=== PATIENT | female | born 2000 | race Caucasian/White ===

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

== ENCOUNTER → 2021-11-16 | Outpatient (CLI) | payer OTHER, SELFPAY ==
[~2021-11-16] MED LIST: ROBA500T PO
== END ==
LOC: M WUC 10:28
PROVIDERS: ATTEND Physician Assistant Medical
DX: M79.602 Pain in left arm (principal)

== ENCOUNTER → 2024-01-09 | Outpatient (REF) | payer OTHER | LOC: M SFHCWAGY 17:36 | PROVIDERS: ATTEND Nurse Practitioner Family | DX: Z12.4 Encounter for screening for malignant neoplasm of cervix (principal); R87.618 Other abnormal cytological findings on specimens from cervix uteri; R87.615 Unsatisfactory cytologic smear of cervix ==

== ENCOUNTER → 2024-02-14 | Outpatient (CLI) | payer OTHER | LOC: M PLARAD 13:21 | PROVIDERS: ATTEND Nurse Practitioner Family | DX: M76.60 Achilles tendinitis, unspecified leg (principal); R22.41 Localized swelling, mass and lump, right lower limb ==

== ENCOUNTER → 2024-03-19 | Outpatient (REF) | payer OTHER | LOC: M SFHCWAGY 15:09 | PROVIDERS: ATTEND Nurse Practitioner Family | DX: R87.612 Low grade squamous intraepithelial lesion on cytologic smear of cervix (LGSIL) (principal) ==

== ENCOUNTER → 2024-08-25 | Outpatient (REF) | payer OTHER ==
[2024-08-25 11:25] LABS: Trichomonas vaginalis (AMP) NOT DETECTED (NEGATIVE)
[2024-08-25 11:49] LABS: GC DNA AMPLIFICATION NEGATIVE (NEGATIVE)
== END ==
LOC: M SFHCWAGY 09:45
PROVIDERS: ATTEND Nurse Practitioner Family
DX: N94.10 Unspecified dyspareunia (principal)

== ENCOUNTER → 2024-08-26 | Outpatient (CLI) | payer OTHER | LOC: M RAD 12:24 | PROVIDERS: ATTEND Nurse Practitioner Family | DX: N94.10 Unspecified dyspareunia (principal) ==

== ENCOUNTER → 2024-08-27 | Outpatient (CLI) | payer OTHER ==
[2024-08-27 12:43] LABS: FOLLICLE STIMULATING HORMONE 6.7 mIU/ML; LUTEINIZING HORMONE 9.6 mIU/ML
[2024-08-27 12:45] LABS: ESTRADIOL 55.5 PG/ML; PROGESTERONE 0.69 NG/ML; PROLACTIN 7.49 NG/ML
[2024-08-27 12:55] LABS: HEMOGLOBIN A1c 5.1 % (4.0-6.0)
[2024-08-28 09:17] LABS: DEHYDROEPIANDROSTERONE SULFATE 341 mcg/dL (14-349)
== END ==
LOC: M LAB 11:19
PROVIDERS: ATTEND Nurse Practitioner Family
DX: E28.2 Polycystic ovarian syndrome (principal)

== ENCOUNTER → 2024-10-10 | Outpatient (CLI) | payer OTHER | LOC: M RAD 10:58 | PROVIDERS: ATTEND Physician Assistant | DX: M51.16 Intervertebral disc disorders with radiculopathy, lumbar region (principal); M51.27 Other intervertebral disc displacement, lumbosacral region ==

== ENCOUNTER → 2025-03-24 | Outpatient (CLI) | payer OTHER ==
[2025-03-24 11:36] LABS: ALT/SGPT 50.0 U/L (7.0-40); AST/SGOT 38.0 U/L (<34); CALCIUM LEVEL 8.9 MG/DL (8.5-10.1); CARBON DIOXIDE LEVEL 28.0 MMOL/L (20-31); CHLORIDE LEVEL 106.0 MMOL/L (98-107); CREATININE FOR GFR 0.92 MG/DL (0.55-1.30); GLOMERULAR FILTRATION RATE 89.2 (>60); POTASSIUM SERUM 4.4 MMOL/L (3.5-5.1); SODIUM LEVEL 141.0 MMOL/L (136-145)
[2025-03-24 11:37] LABS: LUTEINIZING HORMONE 12.0 mIU/ML
[2025-03-24 11:38] LABS: ESTRADIOL 55.6 PG/ML; FREE T4 1.01 NG/DL (0.89-1.76)
== END ==
LOC: M PLALAB 08:56
PROVIDERS: ATTEND Nurse Practitioner Family
DX: Z12.4 Encounter for screening for malignant neoplasm of cervix (principal); N73.9 Female pelvic inflammatory disease, unspecified; R87.612 Low grade squamous intraepithelial lesion on cytologic smear of cervix (LGSIL); E28.2 Polycystic ovarian syndrome

== ENCOUNTER → 2025-03-31 | Outpatient (CLI) | payer OTHER ==
[~2025-03-31] MED LIST changes: +PROHANCE 279.3MG/ML 15ML VIAL As Ordered ONE; +PROHANCE 279.3MG/ML 5ML VIAL As Ordered ONE
== END ==
LOC: M RAD 07:53
PROVIDERS: ATTEND Student in an Organized Health Care Education/Training Program
DX: G96.198 Other disorders of meninges, not elsewhere classified (principal); M51.27 Other intervertebral disc displacement, lumbosacral region
CPT/HCPCS: 72158; A9576

== ENCOUNTER → 2025-06-28 | Outpatient (REF) | payer OTHER ==
[~2025-06-28] MED LIST changes: -PROHANCE 279.3MG/ML 15ML VIAL As Ordered ONE; -PROHANCE 279.3MG/ML 5ML VIAL As Ordered ONE
== END ==
LOC: M PLALAB 15:15
PROVIDERS: ATTEND Obstetrics & Gynecology
DX: R87.612 Low grade squamous intraepithelial lesion on cytologic smear of cervix (LGSIL) (principal)